=== PATIENT | female | born 1960 | race Caucasian/White ===

== ENCOUNTER → 2017-06-11 | Outpatient (CLI) | payer BC ==
--- NOTE | 2017-06-13 09:51 | Diagnostic Imaging Report ---
EXAMINATION: Bilateral screening mammogram 2D views with tomosynthesis. The current study was also evaluated with a Computer Aided Detection (CAD) system. INDICATION: Screening. PERSONAL HISTORY: No current complaints stated on the questionnaire. COMPARISON: 04/06/2016. FINDINGS: The breasts are composed of heterogeneously dense parenchyma which may decrease mammographic sensitivity. Scattered benign-appearing calcifications are seen. Asymmetry with question of architectural distortion is seen in the upper aspect of the right MLO view with no definitive correlate on the CC projection and no definitive mass on tomography evaluation. The left breast demonstrates no definite change. IMPRESSION: Focal compression views and ultrasound evaluation are recommended for upper right breast asymmetry with question of architectural distortion. ACR BI-RADS Category 0: Incomplete. (Needs additional imaging evaluation). Result letter will be mailed to the patient. Note: At least 10% of breast cancer is not imaged by mammography. Dictated by: Dictated on workstation # [id number]
== END ==
LOC: RAD 15:22
PROVIDERS: ATTEND Family Medicine
DX: Z12.31 Encounter for screening mammogram for malignant neoplasm of breast (principal)
CPT/HCPCS: 77067

== ENCOUNTER → 2017-06-25 | Outpatient (CLI) | payer BC ==
--- NOTE | 2017-06-25 22:38 | Diagnostic Imaging Report ---
EXAMINATION: Right breast diagnostic mammogram with tomography evaluation. The current study was also evaluated with a Computer Aided Detection (CAD) system. INDICATION: Asymmetry along the upper aspect of the right breast. COMPARISON: 06/11/2017. FINDINGS: The area of asymmetry previously seen is evaluated with focal compression view which demonstrates no definite underlying lesion. Tomography evaluation as well is essentially negative. IMPRESSION: No underlying lesion demonstrated with additional mammographic evaluation in favor of summation artifact of parenchyma. Ultrasound evaluation pending. ACR BI-RADS Category 0: Incomplete. (Needs additional imaging evaluation). Result letter will be mailed to the patient. Note: At least 10% of breast cancer is not imaged by mammography. Dictated by: Dictated on workstation # [id number]
--- NOTE | 2017-06-25 22:44 | Diagnostic Imaging Report ---
Right breast ultrasound. INDICATION: Right breast asymmetry in the upper aspect. FINDINGS: The upper breast and retroareolar region were scanned with no underlying abnormality seen. IMPRESSION: Negative study. The previously seen asymmetry in the upper aspect of the right breast is likely related to summation effect of parenchyma. Annual screening mammogram is recommended. ACR BI-RADS Category 1: Negative. Dictated by: Dictated on workstation # [id number]
== END ==
LOC: RAD 08:43
PROVIDERS: ATTEND Family Medicine
DX: N64.89 Other specified disorders of breast (principal)

== ENCOUNTER 2017-07-02 05:50 | Outpatient (CLI) | payer BC ==
[~2017-07-02] VITALS: Ht 154.9 cm; Wt 54.4 kg
== END 2017-07-02 14:52 ==
LOC: PREOP 05:50
PROVIDERS: ATTEND Surgery
DX: Z01.818 Encounter for other preprocedural examination (principal); Z12.11 Encounter for screening for malignant neoplasm of colon

== ENCOUNTER 2017-07-09 14:10 | Day surgery (SDC) | payer BC ==
[~2017-07-09] VITALS: Ht 154.9 cm; Wt 54.4 kg
--- OUTSIDE RECORDS SUMMARY | 2017-07-09 14:12 | XMS REPORT | Continuity of Care Document ---
Author Author [facility] Organization [facility] Address Unknown Phone Unavailable Allergies Active Description Code Type Severity Reaction Onset Reported/Identified Relationship to Patient Clinical Status Yes No Known Drug Allergies [id number] Drug Allergy Unknown N/A 07/02/2017 Medications There is no data. Problems Date Dx Coded Attending Type Code Diagnosis Diagnosed By 04/21/2015 HELLEN ZAPIEN Ot V76.12 04/06/2016 Ot V76.12 OTH SCREEN MAMMO-MALIGN NEOPLASM OF RADHIKA 04/06/2016 Ot V76.12 OTH SCREEN MAMMO-MALIGN NEOPLASM OF RADHIKA 04/06/2016 Ot 813.42 FX DISTAL RADIUS NEC-CL 04/06/2016 Ot E000.8 OTHER EXTERNAL CAUSE STATUS 04/06/2016 Ot E888.9 FALL NOS 04/06/2016 ORENDER EMILIE SENIORLINE S Ot V76.12 OTH SCREEN MAMMO-MALIGN NEOPLASM OF RADHI[place] 04/06/2016 HELLEN ZAPIEN Ot V76.12 OTH SCREEN MAMMO-MALIGN NEOPLASM OF RADHIKA 04/06/2016 ORENDER DO, ITZEL S Ot Z12.31 ENCNTR SCREEN MAMMOGRAM FOR MALIGNANT NE 04/19/2016 RAGHAVNDER , ITZEL S Ot Z12.31 ENCNTR SCREEN MAMMOGRAM FOR MALIGNANT NE 04/19/2016 ORENDER DO, ITZEL S Ot Z12.31 ENCNTR SCREEN MAMMOGRAM FOR MALIGNANT NE 06/07/2017 Ot V76.12 OTH SCREEN MAMMO-MALIGN NEOPLASM OF [place]HI[place] 06/07/2017 Ot 813.42 FX DISTAL RADIUS NEC-CL 06/07/2017 Ot E000.8 OTHER EXTERNAL CAUSE STATUS 06/07/2017 Ot E888.9 FALL NOS 06/07/2017 ORENDER DO, ITZEL S Ot V76.12 OTH SCREEN MAMMO-MALIGN NEOPLASM OF [place] 06/07/2017 HELLEN ZAPIEN Ot V76.12 OTH SCREEN MAMMO-MALIGN NEOPLASM OF RAD[place] 06/07/2017 RAGHAVITZEL KESSLER DO S Ot Z12.31 ENCNTR SCREEN MAMMOGRAM FOR MALIGNANT NE 06/12/2017 RAGHAVCHECO ITZEL S Ot Z12.31 ENCNTR SCREEN MAMMOGRAM FOR MALIGNANT NE 06/20/2017 ITZEL HALL DO S Ot Z12.31 ENCNTR SCREEN MAMMOGRAM FOR MALIGNANT NE 07/05/2017 ALEE BROWN, JEREMIAS Thompson Ot Z01.818 ENCOUNTER FOR OTHER PREPROCEDURAL EXAMIN 07/05/2017 JEREMIAS VICKERS MD Ot Z12.11 ENCOUNTER FOR SCREENING FOR MALIGNANT NE Procedures There is no data. Results There is no data. Encounters ACCT No. Visit Date/Time Discharge Status Pt. Type Provider Facility Loc./Unit Complaint [id number] 07/02/2017 05:50:00 07/02/2017 14:52:00 DIS Outpatient JEREMIAS VICKERS MD [facility] PREOP COLONOSCOPY [id number] 06/25/2017 08:43:00 06/25/2017 23:59:59 CLS Outpatient SRINI ITZEL SENIOR S [facility] RAD RT BREAST ASSYMETRY [id number] 06/11/2017 15:22:00 06/11/2017 23:59:59 CLS Outpatient SUREKHA HALL DOQUELINE S [facility] RAD 3D MAMMO SCREENING [id number] 04/06/2016 14:18:00 04/06/2016 23:59:59 CLS Outpatient SUREKHA HALL DOQUELINE S [facility] RAD SCREENING [id number] 04/05/2015 07:22:00 04/05/2015 23:59:59 CLS Outpatient HELLEN ZAPIEN [facility] RAD SCREENING [id number] 07/08/2013 15:01:00 07/08/2013 23:59:59 CLS Outpatient EMILIE HALL DOLINE S [facility] RAD SCREENING [id number] 07/09/2017 12:45:00 PEN Preadmit JEREMIAS VICKERS MD [facility] ENDO SCREENING [id number] 07/22/2012 10:39:00 Document Registration [id number] 07/01/2012 11:05:00 Document Registration [id number] 06/08/2011 13:05:00 Document Registration
[2017-07-09] MEDS ORDERED: NS IV 500 ML 500 ML IV PRN (14:16)
[2017-07-09 14:27] VITALS: BP 105/71
[2017-07-09] MEDS ORDERED: fentaNYL INJECTION 100 MCG/2 ML AMP ONE (14:36)
[2017-07-09] MEDS ORDERED: MIDAZOLAM 2 MG/2 ML (VERSED) VIAL ONE ×7 (14:36→14:51)
--- NOTE | 2017-07-09 14:47 | History & Physicial ---
History of Present Illness History of Present Illness Reason for visit/HPI to undergo screening colonoscopy. Family history of polyps in her father Date of Admission 07/09/17 Date Seen by Provider: Jul 09, 2017 Time Seen by Provider: 14:45 I consulted on this patient on 07/09/17 14:45 Attending Physician Jeremias Cherry MD Admitting Physician Tracey Mei DO Consult Allergies and Home Medications Allergies Coded Allergies: No Known Drug Allergies (Unverified , 07/02/17) Home Medications No Active Prescriptions or Reported Meds Past Etyvsir-Jotjiu-Jztqff Hx Patient Social History Marrital Status: Employed/Student: employed Alcohol Use: Rarely Uses Number of Drinks Today: 0 Recreational Drug Use: No Smoking Status: Never a Smoker Recent Foreign Travel: No Contact w/other who traveled: No Recent Hopitalizations: No Recent Infectious Disease Expo: No Seasonal Allergies Seasonal Allergies: No Surgeries No Respiratory No Cardiovascular No Neurological No Genitourinary No Gastrointestinal No Endocrine History of Endocrine Disorders: No HEENT History of HEENT Disorders: No Cancer No Psychosocial History of Psychiatric Problem: No Integumentary History of Skin or Integumenta: No Blood Transfusions History of Blood Disorders: No Constitutional: no symptoms reported EENTM: no symptoms reported Respiratory: no symptoms reported Cardiovascular: no symptoms reported Gastrointestinal: no symptoms reported Musculoskeletal: no symptoms reported Skin: no symptoms reported Psychiatric/Neurological: No Symptoms Reported Physical Exam Vital Signs Vital Sign - Last 12Hours 07/09/17 14:27 Temp 99.6 Pulse 78 Resp 16 B/P (MAP) 105/71 (82) Pulse Ox 98 O2 Delivery Room Air Capillary Refill : General Appearance: No Apparent Distress HEENT: Normal ENT Inspection Neck: Normal Inspection Respiratory: Lungs Clear Cardiovascular: Regular Rate, Rhythm Gastrointestinal: Non Tender, Soft Rectal: Deferred Extremity: Normal Inspection Neurologic/Psychiatric: Oriented x3 Skin: Warm/Dry Assessment/Plan Assessment and Plan lady to undergo screening colonoscopy. Family history of polyps. Procedure, iatrogenic perforation, post polypectomy bleeding etc. discussed thoroughly. Seems to be in agreement to proceed. Problems: JEREMIAS CHERRY MD Jul 09, 2017 2:47 pm
--- NOTE | 2017-07-09 14:47 | Conscious Sedation/ASA ---
Conscious Sedation Pre-Proced Time Reviewed: 14:47 ASA Class: 1 Airway Mallampati Classification: ([place] appropriate class) I. II. III, IV Lungs Heart ASA score ASA 1: a normal healthy patient ASA 2: a patient with a mild systemic disease (mid diabetes, controlled hypertension, obesity ASA 3: a patient with a severe systemic disease that limits activity (angina , COPD, prior Myocardial infarction) ASA 4: a patient with an incapacitating disease that is a constant threat to life (CHF, renal failure) ASA 5: a moribund patient not expected to survive 24 hrs. (ruptured aneurysm) ASA 6: a declared brain patient whose organs are being harvested. For emergent operations, add the letter E after the classification Grade 1 Sedation Plan: Discussed options with patient/fam Note The patient is an appropriate candidate to undergo the planned procedure, sedation, and anesthesia. The patient immediately re-assessed prior to indication. JEREMIAS VICKERS MD Jul 09, 2017 2:47 pm
[2017-07-09] MEDS: MIDAZOLAM 2 MG/2 ML (VERSED) VIAL IVP PRN ×4 (14:48→14:58)
[2017-07-09] MEDS: fentaNYL INJECTION 100 MCG/2 ML AMP IVP PRN ×2 (14:53→14:55)
[2017-07-09 15:30] VITALS: BP 86/58
[2017-07-09 15:45] VITALS: BP 107/71
--- NOTE | 2017-07-09 15:49 | Endo Procedure Record ---
Endo Procedure Report Date of Procedure Jul 09, 2017 Surgeon (s) JEREMIAS VICKERS MD Post Procedure/Op Diagnosis Normal colonoscopy Procedure Performed Colonoscopy to cecum Description of Procedure Anesthesia Type: Conscious Sedation Specimen(s) collected/removed none Description of the Procedure Indication for procedure: This lady came in for screening colonoscopy. She reported a family history of polyps in her father. Informed consent was obtained after risks reviewing the procedure in detail. Description of procedure: She was placed in left lateral position and her vital signs were monitored. Conscious sedation was achieved using Versed and fentanyl. Digital rectal examination was unremarkable. The colonoscope was then introduced into the rectum and advanced all the way up to the cecum. The quality of bowel preparation was excellent. The scope was then withdrawn slowly and the mucosa examined in a systematic fashion. There was no abnormality. She tolerated the procedure well and was taken back to the nursing area in a stable condition. Impression: Normal screening colonoscopy. Family history of polyps. Recommend repeating in 5 years. Copies To: ITZEL HALL XAVIER M MD Jul 09, 2017 3:49 pm
--- NOTE | 2017-07-09 15:49 | Discharge Inst-Simple/Standard ---
Discharge Inst-Standard Discharge Medications New, Converted or Re-Newed RX: Other Patient Instructions/Follow Up Plan of Care/Instructions/FU: repeat colonoscopy in 5 years Activity as Tolerated: Yes Discharge Diet: No Restrictions JEREMIAS VICKERS MD Jul 09, 2017 3:49 pm
[2017-07-09 15:50] VITALS: BP 107/71
== END 2017-07-09 15:50 | disposition home or self-care (01) ==
LOC: ENDO 14:10
PROVIDERS: ATTEND Surgery
DX: Z12.11 Encounter for screening for malignant neoplasm of colon (principal); Z83.71 Family history of colonic polyps

== ENCOUNTER → 2018-06-21 | Outpatient (CLI) | payer BC ==
--- NOTE | 2018-06-21 12:11 | Diagnostic Imaging Report ---
INDICATION: Routine screening. COMPARISON: Comparison is made with prior mammograms from 06/11/2017 and 04/06/2016. TECHNIQUE: 2D and 3D bilateral screening mammography was performed with computer-aided detection (CAD) system. FINDINGS: Both breasts are heterogeneously dense, limiting the sensitivity of mammography. Benign-appearing calcifications in both breasts appear stable. No new mass or malignant-appearing microcalcifications are seen. The axillae are unremarkable. IMPRESSION: No mammographic features suspicious for malignancy are identified. ACR BI-RADS Category 2: Benign findings. Result letter will be mailed to the patient. Note: At least 10% of breast cancer is not imaged by mammography. Dictated by: Dictated on workstation # [id number]
== END ==
LOC: RAD 09:59
PROVIDERS: ATTEND Family Medicine
DX: Z12.31 Encounter for screening mammogram for malignant neoplasm of breast (principal)
CPT/HCPCS: 77067

== ENCOUNTER → 2019-06-27 | Outpatient (CLI) | payer BC ==
--- NOTE | 2019-06-30 08:49 | Diagnostic Imaging Report ---
INDICATION: Screening. TECHNIQUE: The current study was also evaluated with a Computer Aided Detection (CAD) system. 3-D Tomographic imaging was also performed. COMPARISON: 06/21/2018, 06/11/2017, and 04/06/2016. FINDINGS: The fibroglandular tissue is heterogeneously dense bilaterally. There are scattered benign type calcifications. There is no new dominant mass, spiculated lesion, or suspicious calcification identified. The skin, nipples, and axillae are unremarkable. IMPRESSION: Benign findings. ACR BI-RADS Category 2: Benign findings. Result letter will be mailed to the patient. Note: At least 10% of breast cancer is not imaged by mammography. Dictated by: Dictated on workstation # [id number]
== END ==
LOC: RAD 07:41
PROVIDERS: ATTEND Family Medicine
DX: Z12.31 Encounter for screening mammogram for malignant neoplasm of breast (principal)
CPT/HCPCS: 77067

== ENCOUNTER → 2022-12-12 | Outpatient (CLI) | payer BC ==
--- NOTE | 2022-12-13 13:35 | Diagnostic Imaging Report ---
INDICATION: Routine screening. COMPARISON: 06/27/2019 and 06/21/2018. TECHNIQUE: 2D and 3D bilateral screening mammography was performed with CAD. FINDINGS: Both breasts are heterogeneously dense, limiting the sensitivity of mammography. Scattered benign calcifications are noted. No mass or malignant-appearing microcalcifications are seen. The axillae are unremarkable. IMPRESSION: No mammographic features suspicious for malignancy are identified. ACR BI-RADS Category 2: Benign findings. Result letter will be mailed to the patient. Note: At least 10% of breast cancer is not imaged by mammography. Dictated by: Dictated on workstation # [id number]
== END ==
LOC: RAD 15:06
PROVIDERS: ATTEND Nurse Practitioner Family
DX: Z12.31 Encounter for screening mammogram for malignant neoplasm of breast (principal)
CPT/HCPCS: 77063; 77067